=== PATIENT | female | born 1950 | race Caucasian/White ===

== ENCOUNTER → 2017-04-23 08:00 | Outpatient (CLI) | payer OTHER ==
[~2017-04-23 08:00] MED LIST: ASA81 MG PO; CELEBREX50 MG PO; COREG CR10 MG PO; COZAAR50 MG; COZAAR50 MG PO; INTESTINEX1 CA1 PO; KLONOPIN1 MG/TAB; KLONOPIN1 MG/TAB PO; LEVSIN/SL0.125 MG PO; LEVSIN0.125 MG PO; LIBRAX CAPSULE1 CA1; NABUMETONE500 MG PO; NEURONTIN250 MG/5 M; NEURONTIN300 MG; ORPH100T PO; OXYCODONE PO; PERCOCET 5/3251 TAB PO; PRESTIGE; PREVACID30 MG PO; PRISTIC; PROTONIX40 MG; PROTONIX40 MG PO; SKELAXIN800 MG PO; TRAM1TAB PO; TRAMADOL HCL-1 UDTAB PO; TRICOR48 MG PO; TRILIPIX; ULTRACET PO; ZANTAC300 MG PO; [UNRECOGNIZED DRUG - OTHER]; [UNRECOGNIZED DRUG - OTHER] PO
== END | disposition home or self-care (01) ==
LOC: LAB 08:00 → CIR.AMB 04-30 14:14 → EDSTATUS 04-30 18:48
DX: M51.26 Other intervertebral disc displacement, lumbar region (principal); Z01.812 Encounter for preprocedural laboratory examination

== ENCOUNTER 2017-10-29 07:50 | Day surgery (SDC) | payer OTHER ==
[~2017-10-29 07:50] MED LIST changes: +BENTYL10 MG/1 ML IM; +COREG PO; +COZAAR100 MG PO; +CYMBALTA60 MG PO; +GABAPENTIN300 MG PO; +LIPITOR20 MG PO; +NORVASC5 MG PO
== END 2017-10-29 12:25 | disposition home or self-care (01) ==
LOC: CIR.AMB 07:50
DX: M47.816 Spondylosis without myelopathy or radiculopathy, lumbar region (principal); M50.222 Other cervical disc displacement at C5-C6 level

== ENCOUNTER 2017-11-30 11:43 | Day surgery (SDC) | payer OTHER | END 2017-11-30 16:50 | disposition home or self-care (01) | LOC: AMB-ENDOS 11:43 → CIR.AMB 12:24 → AMB-ENDOS 13:12 | DX: K57.30 Diverticulosis of large intestine without perforation or abscess without bleeding (principal); K64.8 Other hemorrhoids ==